=== PATIENT | female | born 1990 | race Caucasian/White ===

== ENCOUNTER 2019-10-06 06:20 | Inpatient (IN) | payer MEDICAID, SELFPAY ==
[2019-10-06 06:03] VITALS: BMI 53.4
--- NOTE | 2019-10-06 06:04 | NURSING ---
0603-difficult to assess presenting part
[2019-10-06] MEDS: Lactated Ringers 500 ML 999 ML IV ×2 (06:25→10:56)
[2019-10-06 06:48] LABS: Absolute Lymphocyte Count 1.67 X10^3/uL (0.83-4.51); Absolute Neutrophil Count 6.6 X10^3/uL (2.0-7.7); Basophil# 0.01 X10^3/uL; Basophil% 0.1 % (0-1); Eosinophil# 0.01 X10^3/uL; Eosinophils% 0.1 % (0-5); Hematocrit 37.3 % (37-47); Hemoglobin 12.3 g/dL (12.0-15.0); Lymphocyte # 1.67 X10^3/ul (4.0); Lymphocyte % 18.5 % (19-41); Mean Corpuscular Hgb 26.9 pg (27.0-32.0); Mean Corpuscular Volume 81.4 fL (81-99); Mean Platelet Vol. 11.2 fl (6.2-12.0); Monocyte# 0.61 X10^3/uL; Monocyte% 6.8 % (0-10); NRBC Flagged by Analyzer 0 % (0-5); Neutrophil # 6.63 X10^3/uL (2.7-7.7); Neutrophil % 73.6 % (47-70); Platelet Count 188 K/mm3 (150-450); RBC Distribution Width CV 13.2 % (11.6-14.6); RBC Distribution Width SD 38.6 fl (35.1-43.9); Red Blood Count 4.58 M/mm3 (4.2-5.4)
[2019-10-06] MEDS: Lactated Ringers 1,000 ML 50 ML IV (07:00)
[2019-10-06] MEDS: fentaNYL-bupivacaine (epidural) 100 ML BAG EPIDURAL ×2 (09:20→12:53)
[2019-10-06] MEDS: Lactated Ringers 1,000 ML 200 ML IV (13:25)
[2019-10-06] MEDS: Oxytocin 30 units/NS 500 ml 30 UNITS/500 ML IV.SOLN IV (13:38)
[2019-10-06] MEDS: Oxytocin 30 units/NS 500 ml 30 UNITS/500 ML IV.SOLN 334 UNITS IV (15:58)
--- NOTE | 2019-10-06 16:05 | PCM.OPRPT ---
Vaginal Delivery Maternal Presentation: Active Labor Amniotic Membrane Rupture Type: Artificial Amniotic Fluid Description: Clear Final ESTHER: 10/22/19 Gestational age: 37 Weeks and 5 Days Date of Procedure: 10/06/19 Pre-Operative Diagnosis: labor Post-Operative Diagnosis: same Surgery/ Procedure Performed: Spontaneous Vaginal Delivery Type of Anesthesia: Epidural Description of Procedure: A vigorous was delivered HARPREET over degree vaginal laceration. The remainder the infant was delivered with maternal pushing and gentle traction only in less than 15 seconds. The Pitocin infusion was initiated for active management of the third stage. The cord was clamped and cut. The was attended to by the waiting nursing staff. The placenta was delivered spontaneously and intact. The cervix and vagina were intact. The first-degree vaginal laceration was repaired with 3-0 Vicryl suture in standard fashion. Sponge and needle counts were correct. A vaginal sweep was completed by me. Presentation: HARPREET Placental Delivery Description: Spontaneous Placenta Disposition: [facility] Cord Vessel Description: 3 Vessels Cord Entanglement: None Estimated Blood Loss: 200 Infant A gender: Male Episiotomy Description: None Laceration: 1st degree Medications given after delivery: IV Pitocin Complications: None
--- NOTE | 2019-10-06 16:08 | PCM.HP.OB ---
History Date of Admission: 05/07/13 Final ESTHER: 10/22/19 Gestational age: 37 Weeks and 5 Days History of this : This is a 29 year-old, 2 para 1 at 37-5/7 weeks gestation with labor. She denies any gross vaginal bleeding or leaking of fluid. Contractions began middle the night got intense after arrival. Allergies Bleach (Sodium Hypochlorite) Adverse Reaction (Verified 10/06/19 06:05) Hives Home Medications: Home Medications 105/Iron/Folic AC/Dha 1 PO DAILY 10/06/19 Smoking Status: Never smoker Number of Fetus(es): 1 History Past Pregnancies: Past Pregnancies Delivery Date Name GA/ Weeks Outcome Route Wt Sex Labor Length Anesthesia Delivery Location Provider FOB Expected Infant Delivery Method: Spontaneous Vaginal Review of Systems Constitutional: Denies: Chills, Fever Eyes: Denies: Blurred vision Cardiovascular: Denies: Chest Pain Respiratory: Denies: Cough Skin: Denies: Rash Neurological: Denies: Blurred vision, Change in Speech Hematologic/ Lymphatic: Denies: Anemia Physical Exam General: Alert, Cooperative, No apparent distress Cardiovascular: Regular rate Lungs: Normal air movement Abdomen: Soft, Non Tender, Non-Distended, Gravid, Appropriate for Gestational Age Extremities:: Other - Edema: 2+ Neurological: Cranial nerves II-XII grossly intact, Deep Tendon Reflexes 2+/4 and Symmetrical 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 Estimated weight is less than 4500 g clinically, pelvis clinically adequate to expect vaginal delivery. Group B strep prophylaxis initiated. May have routine pain management measures in labor.
[2019-10-06 19:34] VITALS: BP 112/54; PULSE 99; RESP 16; TEMP 37.1; O2SAT 97
[2019-10-06] MEDS: Senna/Docusate Sodium 1 Tablet PO (21:22)
[2019-10-06] MEDS: Naproxen 250 MG Tablet 500 MG PO (21:44)
[2019-10-06 23:54] VITALS: BP 114/53; PULSE 96; RESP 18; TEMP 37
[2019-10-07 04:00] VITALS: BP 105/45; PULSE 83; RESP 16; TEMP 36.2
[2019-10-07 05:47] LABS: Absolute Lymphocyte Count 1.71 X10^3/uL (0.83-4.51); Basophil# 0.01 X10^3/uL; Basophil% 0.1 % (0-1); Eosinophil# 0.01 X10^3/uL; Eosinophils% 0.1 % (0-5); Hematocrit 36.2 % (37-47); Hemoglobin 11.7 g/dL (12.0-15.0); Lymphocyte # 1.71 X10^3/ul (4.0); Lymphocyte % 14.9 % (19-41); Mean Corp Hgb Conc 32.3 g/dL (32-36); Mean Corpuscular Hgb 26.7 pg (27.0-32.0); Mean Corpuscular Volume 82.5 fL (81-99); Mean Platelet Vol. 11.3 fl (6.2-12.0); Monocyte# 0.75 X10^3/uL; Monocyte% 6.5 % (0-10); NRBC Flagged by Analyzer 0 % (0-5); Neutrophil # 8.95 X10^3/uL (2.7-7.7); Neutrophil % 77.8 % (47-70); Platelet Count 211 K/mm3 (150-450); RBC Distribution Width CV 13.2 % (11.6-14.6); RBC Distribution Width SD 39.8 fl (35.1-43.9); Red Blood Count 4.39 M/mm3 (4.2-5.4); White Blood Count 11.5 K/mm3 (4.4-11.0)
[2019-10-07] MEDS: Naproxen 250 MG Tablet 500 MG PO ×2 (05:51→15:25)
[2019-10-07 07:47] VITALS: BP 114/71; PULSE 93; RESP 16; TEMP 36.2
--- NOTE | 2019-10-07 07:59 | PN.OBGYN_ITS ---
Subjective: Patient doing well. Denies VAUGHN, vision changes, lightheadedness, dizziness, chest pain, shortness of breath, palpitations, increased pain, leg pain. Lochia normal. . Ambulating and voiding without difficulty. - Physical Exam Vitals/I&O's: Vital Signs Temp Pulse Resp BP Pulse Ox 97.2 F L 93 16 114/71 97 10/07/19 07:47 10/07/19 07:47 10/07/19 07:47 10/07/19 07:47 10/06/19 19:34 Oxygen Delivery Method Room Air Weight: 330 lb 11.094 oz Body Mass Index (BMI) 53.4 Intake and Output for Last 24 Hours 10/05/19 10/06/19 10/07/19 23:59 23:59 23:59 Intake Total 4331.19 / 4331.19 Output Total 950 / 1300 350 / 350 Balance 3381.19 / 3031.19 -350 / -350 General: Alert, No apparent distress HEENT: Atraumatic Abdomen: Soft, Non Tender, - - FF@U Extremities: No edema Skin: No rashes Neurological: Neuro grossly intact Psych/Mental Status: Normal Affect, Appropriate Laboratory Results 10/06/19 06:25: Blood Type A NEGATIVE, Antibody Screen NEGATIVE 10/06/19 17:24: Screen NEGATIVE, Baby's Blood Type O POSITIVE, Baby's WILLIAM NEGATIVE 10/07/19 05:30: WBC 11.5 H, RBC 4.39, Hgb 11.7 L, Hct 36.2 L, MCV 82.5, MCH 26.7 L, MCHC 32.3, RDW Std Deviation 39.8, RDW Coeff of Jay 13.2, Plt Count 211, MPV 11.3, Immature Gran % (Auto) 0.600, Neut % (Auto) 77.8 H, Lymph % (Auto) 14.9 L, [place] % (Auto) 6.5, Eos % (Auto) 0.1, Baso % (Auto) 0.1, Absolute Neuts (auto) 9.0 H, Absolute Lymphs (auto) 1.71, Nucleated RBC % 0 Current Medications Acetaminophen (Tylenol) 1,000 mg PO Q8H PRN PRN PRN Reason: Pain Score 1-3/10 Bisacodyl (Dulcolax) 10 mg RECTAL UD PRN PRN Reason: If no BM Dibucaine (Dibucaine) 1 applic TOPICAL TID PRN PRN; Protocol PRN Reason: Discomfort Hydrocortisone (Hytone) 1 applic TOPICAL TID PRN PRN; Protocol PRN Reason: Discomfort Methylergonovine Maleate (Methergine) 0.2 mg IM X1 PRN PRN Reason: Excess bleeding/uterine atony Naproxen (Naprosyn) 500 mg PO Q8H PRN PRN PRN Reason: Pain Score 1-3/10 Last Admin: 10/07/19 05:51 Dose: 500 mg Documented by: Ondansetron HCl (Zofran) 4 mg IV Q4H PRN PRN PRN Reason: Nausea Prochlorperazine Edisylate (Compazine Iv) 10 mg IV Q6H PRN PRN PRN Reason: NAUSEA/VOMITING Senna/Docusate Sodium (Senokot-S, Torie-Colace) 1 - 2 tablet PO DAILY PRN PRN PRN Reason: Constipation Last Admin: 10/06/19 21:22 Dose: 1 tablet Documented by: Simethicone (Mylicon) 80 mg PO PCHS PRN PRN Reason: Indigestion/Stomach pain Sodium Chloride () 5 - 15 ml IV UD PRN PRN Reason: SALINE FLUSH Medical Necessity - Tobacco Use Smoking Status: Never smoker Assessment/Plan day 1 from a spontaneous vaginal delivery -Patient is doing well -Breast-feeding -Dispo: Patient desires to stay another night. Anticipate discharge tomorrow
[2019-10-07 10:06] VITALS: BP 120/67; PULSE 101; RESP 16; TEMP 36
--- NOTE | 2019-10-07 10:51 | NURSING ---
reviewed student's chart for completeness
[2019-10-07 15:12] VITALS: BP 136/62; PULSE 88; RESP 16; TEMP 36.1
[2019-10-07] MEDS: Acetaminophen 500 MG Tablet 1000 MG PO (19:52)
[2019-10-07 19:53] VITALS: BP 121/74; PULSE 87; RESP 18; TEMP 36.3
[2019-10-08] MEDS: Naproxen 250 MG Tablet 500 MG PO ×2 (01:06→09:34)
[2019-10-08] MEDS: Senna/Docusate Sodium 1 Tablet PO (01:06)
[2019-10-08 01:10] VITALS: BP 111/68; PULSE 85; RESP 17; TEMP 36.4; O2SAT 96
[2019-10-08 09:00] VITALS: BP 107/60; PULSE 100; RESP 16; TEMP 36.4
--- NOTE | 2019-10-08 09:02 | PCM.PN.OB ---
Subjective: Doing well per patient and nursing staff. Ambulating and taking PO without difficulty. Voiding and passing flatus. Denies any headache, visual changes, chest pain, SOB, or leg pain, Lochia normal. Planning D/C home today. - Physical Exam Vitals/I&O's: Vital Signs Temp Pulse Resp BP Pulse Ox 97.5 F L 85 17 111/68 96 10/08/19 01:10 10/08/19 01:10 10/08/19 01:10 10/08/19 01:10 10/08/19 01:10 Oxygen Delivery Method Room Air Weight: 330 lb 11.094 oz Body Mass Index (BMI) 53.4 Intake and Output for Last 24 Hours 10/06/19 10/07/19 10/08/19 23:59 23:59 23:59 Intake Total 4331.19 / 4331.19 Output Total 950 / 1300 350 / 350 Balance 3381.19 / 3031.19 -350 / -350 General: Alert, Oriented x3, Cooperative HEENT: Atraumatic, Normocephalic Neck: Trachea Midline Lungs: Clear to auscultation, Normal air movement, No rhonchi, No wheeze Cardiovascular: Regular rate, Regular Rhythm, No murmurs Abdomen: Bowel Sounds Present, - - Fundus firm 2 below U Extremities: No edema Psych/Mental Status: Normal Affect, Appropriate Current Medications Acetaminophen (Tylenol) 1,000 mg PO Q8H PRN PRN PRN Reason: Pain Score 1-3/10 Last Admin: 10/07/19 19:52 Dose: 1,000 mg Documented by: Bisacodyl (Dulcolax) 10 mg RECTAL UD PRN PRN Reason: If no BM Dibucaine (Dibucaine) 1 applic TOPICAL TID PRN PRN; Protocol PRN Reason: Discomfort Hydrocortisone (Hytone) 1 applic TOPICAL TID PRN PRN; Protocol PRN Reason: Discomfort Methylergonovine Maleate (Methergine) 0.2 mg IM X1 PRN PRN Reason: Excess bleeding/uterine atony Naproxen (Naprosyn) 500 mg PO Q8H PRN PRN PRN Reason: Pain Score 1-3/10 Last Admin: 10/08/19 01:06 Dose: 500 mg Documented by: Ondansetron HCl (Zofran) 4 mg IV Q4H PRN PRN PRN Reason: Nausea Prochlorperazine Edisylate (Compazine Iv) 10 mg IV Q6H PRN PRN PRN Reason: NAUSEA/VOMITING Senna/Docusate Sodium (Senokot-S, Torie-Colace) 1 - 2 tablet PO DAILY PRN PRN PRN Reason: Constipation Last Admin: 10/08/19 01:06 Dose: 1 tablet Documented by: Simethicone (Mylicon) 80 mg PO PCHS PRN PRN Reason: Indigestion/Stomach pain Sodium Chloride () 5 - 15 ml IV UD PRN PRN Reason: SALINE FLUSH Medical Necessity - Tobacco Use Smoking Status: Never smoker Assessment/Plan A:PPD #2 P: 1) Routine care 2) Planning D/C home today 3) Hgb stable
--- NOTE | 2019-10-08 09:05 | DCINST_ITS ---
Discharge Diet: No Restrictions Discharge Activity: Return to Normal Activity, May not drive while taking narcotic pain medications., May Shower, May Take a Tub Bath May resume sexual activity in: 4-6 weeks Additional Activity Instructions:: Nothing in the vagina for 4-6 weeks. You may return to work/school in 6 weeks. Call your doctor if your incision/area has: Continuous Slow Oozing, Sudden Increased Bleeding, Increased Pain/ Swelling, Increased Redness, Foul Smelling Discharge Call your doctor if you observe: Fever of 101 or Higher, Inability to urinate, Inability to have a bowel movement, Using more than one pad per hour, Shortness of breath, Chest pain, Increased palpitations (irregular heartbeat), Calf discomfort, Uncontrolled pain Additional Instructions: If you experience any of the following, contact your healthcare provider. * Bleeding that soaks a pad every hour for 2 hours * Fever 100.4 or higher * Unrelieved incision or abdominal pain * Swelling, redness, discharge or bleeding from your incision or episiotomy site * Your incision begins to separate * Problems urinating (including inability to urinate or burning while urinating). * Visual changes * Severe headache * Flu-like symptoms * Pain or redness in one of both of your breasts * Pain, warmth, tenderness or swelling in your legs, especially the calf area * Frequent nausea and vomiting * Symptoms of depression or anxiety If you experience any of the following, call 911 or go to the nearest Emergency Room. * Chest pain * Problems breathing * Seizure activity * Partial or complete paralysis of a body part, slurred speech, weakness or drooping of the face, or a sudden inability to walk or hold your balance Allergies/Adverse Reactions: Allergies Bleach (Sodium Hypochlorite) Adverse Reaction (Verified 10/06/19 06:05) Hives Medications to take at Discharge 105/Iron/Folic AC/Dha 1 PO DAILY 10/06/19 Naproxen [Naprosyn] 500 mg PO Q8H PRN PRN #30 tab 10/08/19 Senna/Docusate Sodium [Senokot-S] 1 - 2 tab PO DAILY PRN PRN #30 tab 10/08/19 The following prescriptions were given: Naproxen [Naprosyn] 500 mg PO Q8H PRN PRN #30 tab PRN Reason: Pain Score 1-01/19 Transmission Status: Pending to [facility] Senna/Docusate Sodium [Senokot-S] 1 - 2 tab PO DAILY PRN PRN #30 tab PRN Reason: Constipation Transmission Status: Pending to [facility] Please Follow Up With: Jazlyn Rosas MD When: Call to make an appointment with your doctor in 6 weeks. If you had elevated Blood Pressure or 4th degree laceration you will need to be seen in 2 weeks. Primary Care Physician: Care Physician,No Primary [Primary Care Provider] - Test Results: Test results from this visit will be discussed in further detail at your follow- up appointment, if applicable.
== END 2019-10-08 11:20 | disposition home or self-care (01) | DRG 560 ==
LOC: WPOUT 06:32
PROVIDERS: Advanced Practice Midwife; Admitting Provider Obstetrics & Gynecology; Referring Provider Obstetrics & Gynecology; Visit Provider Obstetrics & Gynecology
DX: O70.0 First degree perineal laceration during delivery (principal); Z37.0 Single live birth; Z3A.37 37 weeks gestation of pregnancy
CPT/HCPCS: 36415; 59025; 59050; 85025; 85461; 86850; 86900; 86901; 90384; 99218; J7120; G0378; J2790; J3490

== ENCOUNTER 2019-11-20 07:38 | Day surgery (SDC) | payer MEDICAID, SELFPAY ==
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
[2019-11-20] VITALS (8 sets, daily range): BP systolic 110–135; BP diastolic 36–79; PULSE 67–89; RESP 16; TEMP 36.1–36.4; O2SAT 90–99; BMI 53.1
[2019-11-20 08:09] LABS: Internal QC Validated? YES +Cl - CLEAR BKGD; Pregnancy, Urine Negative Negative
[2019-11-20] MEDS: Lactated Ringers 1,000 ML 100 ML IV ×2 (08:22→10:51)
[2019-11-20 08:34] LABS: Hematocrit 38.6 % (37-47); Hemoglobin 12.4 g/dL (12.0-15.0); Mean Corp Hgb Conc 32.1 g/dL (32-36); Mean Corpuscular Hgb 25.7 pg (27.0-32.0); Mean Corpuscular Volume 79.9 fL (81-99); Mean Platelet Vol. 10.2 fl (6.2-12.0); Platelet Count 264 K/mm3 (150-450); RBC Distribution Width CV 12.7 % (11.6-14.6); RBC Distribution Width SD 36.2 fl (35.1-43.9); Red Blood Count 4.83 M/mm3 (4.2-5.4); White Blood Count 7.8 K/mm3 (4.4-11.0)
--- NOTE | 2019-11-20 09:40 | FALS_PTH ---
PATIENT: DENISSE MCKENZIE LOC: [facility] [place] U#:[id number] AGE/SX: 29/F ROOM: RE11/20/[address]: Dr. Juliet Archuleta, MDDOB: 1990 BED: DIS: 11/20/2019 SPEC #: [id number] RECD: 11/20/19 11:32 STATUS: RO REBryant #: [id number] LARRY: 11/20/19 09:[address]: Juliet Archuleta DEPT: SURGICAL PATHOLOGY RECD BY: Preet Orozco ENTERED: 11/20/19 13:45 SP TYPE: FALL TUBES OTHR DR: Dr. Wilson Cruz MD Tissues: Fallopian tube Procedures: Surgery Specimen Level II Surgery Specimen Level IV HEADER OPERATION: Laparoscopic salpingectomy PRE-OP DIAGNOSIS: Sterilization TISSUE SUBMITTED: Bilateral fallopian tubes MICROSCOPIC DIAGNOSIS Right and left fallopian tubes, bilateral salpingectomies: Two complete segments of fallopian tubes. One fallopian tube with benign paratubal cyst. AM:maricruz 11/21/19 MICROSCOPIC DESCRIPTION Slides are reviewed. GROSS DESCRIPTION Received is one container labeled with the patient's name and designated bilateral fallopian tubes. The specimen consists of bilateral fallopian tubes including fimbrial ends measuring 5 cm in length and 0.7 cm in diameter and 6 cm in length and 0.6 cm in diameter. One of the fallopian tubes shows a cyst measuring 0.3 cm in great dimension. The fallopian tubes are not identified as right or left. Sections reveal unremarkable cut surfaces. Senior Principal Process Engineer sections are submitted in two cassettes as follows: 1??one fallopian tube, 2 - second fallopian tube and paratubal cyst. / SJ:maricruz 11/20/19 TC:4 CPT: 73307, 16637
--- NOTE | 2019-11-20 10:28 | DCINST_ITS ---
Discharge Diet: No Restrictions, - - Increase fluid intake for 48 hours. Discharge Activity: Return to Normal Activity, May Drive - when you are no longer taking narcotic pain medications., May Shower, May Take a Tub Bath - in 7 days., - - Ambulate often the next week after surgery. Additional Activity Instructions:: Nothing in the vagina for the next 5 days. Call your doctor if your incision/area has: Continuous Slow Oozing, Sudden Increased Bleeding, Increased Pain/ Swelling, Increased Redness, Foul Smelling Discharge, Swelling at the incision site Call your doctor if you observe: Fever of 101 or Higher Allergies/Adverse Reactions: Allergies Bleach (Sodium Hypochlorite) Adverse Reaction (Verified 11/20/19 08:06) Hives Medications to take at Discharge 105/Iron/Folic AC/Dha 1 tab PO DAILY 10/06/19 Ibuprofen [Motrin] 600 mg PO Q6H PRN PRN #30 tab 11/20/19 Oxycodone HCl/Acetaminophen [Percocet 5/325] 1 tablet PO Q4H PRN PRN 7 Days #10 tablet 11/20/19 The following prescriptions were given: Ibuprofen [Motrin] 600 mg PO Q6H PRN PRN #30 tab PRN Reason: Pain Or Fever Transmission Status: Pending to [facility] Oxycodone HCl/Acetaminophen [Percocet 5/325] 1 tablet PO Q4H PRN PRN 7 Days #10 tablet PRN Reason: Pain Or Fever Transmission Status: Sent to [facility] Primary Care Physician: Wilson Cruz MD [Primary Care Provider] - Test Results: Test results from this visit will be discussed in further detail at your follow- up appointment, if applicable.
--- NOTE | 2019-11-20 10:29 | PCM.OPRPT ---
Report of Operation Date of Procedure: 11/20/19 Pre-Operative Diagnosis: desires sterilization Post-Operative Diagnosis: same, endometriosis Surgery/Procedure Performed:: laparoscopic Bilateral salpingectomy Description of Surgical Findings:: Endoemtriosis appearing lesions on bilateral ovaries. Otherwise normal appearing pelvic anatomy service advocate contact: Zee Ashraf Type of Anesthesia:: General Special Medications: marcaine Specimen's removed: bilateral fallopian tubes Drains: none Estimated Blood Loss (mL): <5 Fluids Replaced: 600 Description of Procedure: After informed consent was obtained patient was taken to the operating room she was placed in supine position she was given anesthesia. She was then placed in the [facility] [place] stirrups and she was prepped and draped in normal sterile fashion. Bladder was drained prior to the start of procedure. At this time attention was turned to the vaginal portion where weighted speculum placed at posterior fornix vagina single-tooth tenaculum was used to gently grasp the internal the cervix. uterus was gently sounded to approximately cm. Uterine manipulator was placed without difficulty. Legs then placed in parallel with the abdomen the tenaculum and the weighted speculum were removed. 2 towel clamps were placed at level of umbilicus. Marcaine was injected infraumbilical and a small incision was made. The 5 mm trocar was placed under direct visualization. CO2 gas was used to insufflate the intra-abdominal cavity. Upon inspection no gross abnormalities appreciated- the uterus tubes and ovaries appeared to be normal. At this time then the LLQ and RLQ ports were placed First Marcaine was injected and small incision was made a knife and the 5 mm trocars were placed. At this time then tubes were traced back to the fimbriated ends. Ligasure was used to coagulate and ligate along mesosalpynx bilaterally until tubes removed completely. Good hemostasis was appreciated. At this time procedure was deemed complete successful. The gas was desufflated on from the intra-abdominal cavity. The trochars were removed. Skin was closed using 4-0 Monocryl in a subcutaneous fashion. Dermabond glue was placed. Instrument lap and needle counts were correct ?2. The uterine manipulator was removed. Vaginal sweep was performed it was negative. There were no complications anticipated normal postoperative course for this patient. Grafts/Implants Used: none - Complications none - Admit VTE Documentation VTE Present on Admission: Yes VTE Mechan Device Prophylaxis: SCD's VTE Pharm Prophylaxis ordered?: No
[2019-11-20] MEDS: Bupivacaine Mpf 0.5% 30 ML VIAL (10:31)
== END 2019-11-20 12:10 | disposition home or self-care (01) ==
LOC: SDC 07:40 → AC 07:53
PROVIDERS: Family Provider Family Medicine; PCP Family Medicine; Referring Provider Obstetrics & Gynecology; Visit Provider Obstetrics & Gynecology
PROC: (CPT 58661; principal; 2019-11-20 09:25)
DX: Z30.2 Encounter for sterilization (principal); N80.1 Endometriosis of ovary; J45.909 Unspecified asthma, uncomplicated
CPT/HCPCS: 58661; 81025; 85027; 88302; 88305; J7120; J2405

== ENCOUNTER → 2023-12-03 | Outpatient (CLI) | payer MEDICAID, SELFPAY ==
--- NOTE | 2023-12-03 15:13 | US_ITS ---
STUDY: ULTRASOUND TRANSVAGINAL CLINICAL: Female, 33 years old. abnormal uterine bleeding TECHNIQUE: Transvaginal COMPARISON: None. FINDINGS: Limited by bowel gas. Normal uterine size measuring 8.3 x 4.9 x 5.0 cm in maximal craniocaudal dimension. There are no myometrial masses. Normal endometrial thickness measuring 5 mm. There are no endometrial masses, and there is no fluid in the endometrial cavity. Endometrial echoes are hyperechoic and well-defined. Nabothian cyst of the uterine cervix. Normal right ovary, measuring 4.4 x 4.2 x 3.6 cm. There is a 3.5 cm simple cyst. Normal blood flow. Left ovary is not visualized because of bowel gas. There is no free fluid in the pelvis. Polycystic ovary disease: No. US/Transvaginal Non- IMPRESSION: Left ovary is not seen. Right ovary has a 3.5 cm cyst. No other definite acute or significant abnormality seen. Electronically Signed: Edwar Ramírez MD at 16:58 EST ,
--- OUTSIDE RECORDS SUMMARY | 2023-12-03 15:54 | XMS RPT_ITS | CCD ---
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 examination of abnormal mammogram Procedures TAMIKA DIAGNOSTIC BILAT DIAGNOSTIC MAMMOGRAPHY COMPUTER-AIDED DETCJ BI Nadine Graham MD [address] [place] [address] [facility] [address] [place] [address] Referral ID Status Reason Start Date Expiration Date Visits Requested Visits Authorized [id number] Pending Review Auto-Generat ed Referral 03/14/2022 04/13/2023 1 1 [facility] for referral (narrative)* Diagnostic Procedure Only (Routine) - Authorized Specialty Diagnoses / Procedures Referred By Contac t Referred To Contact [facility] Diagnoses Pelvic pain in female History of ovarian cyst Procedures PELVIC US WHI US PELVIC NONOBSTETRIC REAL-TIME IMAGE COMPLETE Nadine Graham MD [address] [place] [address] [facility] [address] [place] [address] Referral ID Status Reason Start Date Expiration Date Visits Requested Visits Authorized [id number] Authorized Auto-Generat ed Referral 05/23/2022 05/23/2023 1 1 [facility] for referral (narrative)* Diagnostic Procedure Only (Routine) - Authorized Specialty Diagnoses / Procedures Referred By Contac t Referred To Contact [facility] Diagnoses Follow-up examination of abnormal mammogram Procedures US BREAST LTD RIGHT US BREAST UNI REAL TIME WITH IMAGE LIMITED Anabela Carroll APRN.CNP [address] [place] [address] [facility] [address] [place] [address] Referral ID Status Reason Start Date Expiration Date Visits Requested Visits Authorized [id number] Authorized Auto-Generat ed Referral 03/20/2023 04/18/2024 1 1 * Diagnostic Procedure Only (Routine) - Authorized Specialty Diagnoses / Procedures Referred By Contac t Referred To Contact [facility] Diagnoses Follow-up examination of abnormal mammogram Procedures US BREAST LTD LEFT US BREAST UNI REAL TIME WITH IMAGE LIMITED Anabela Carroll APRN.GLOBAL COMPENSATION ANALYST [address] [place] [address] [facility] [address] [place] [address] Referral ID Status Reason Start Date Expiration Date Visits Requested Visits Authorized [id number] Authorized Auto-Generat ed Referral 03/20/2023 04/18/2024 1 1 * Diagnostic Procedure Only (Routine) - Authorized Specialty Diagnoses / Procedures Referred By Gary arenas Referred To Contact [facility] Diagnoses Follow-up examination of abnormal mammogram Procedures TAMIKA DIAGNOSTIC BILATERAL DIAGNOSTIC MAMMOGRAPHY COMPUTER-AIDED DETCJ BI Anabela Carroll APRN.GLOBAL COMPENSATION ANALYST [address] [place] [address] [facility] [address] [place] [address] Referral ID Status Reason Start Date Expiration Date Visits Requested Visits Authorized [id number] Authorized Auto-Generat ed Referral 03/20/2023 04/18/2024 1 1 [facility] for referral (narrative)* Diagnostic Procedure Only (Routine) - Closed Specialty Diagnoses / Procedures Referred By Gary arenas Referred To Contact [facility] Diagnoses Follow-up examination of abnormal mammogram Procedures US BREAST LTD RIGHT US BREAST UNI REAL TIME WITH IMAGE LIMITED Anabela Carroll APRN.GLOBAL COMPENSATION ANALYST [address] [place] [address] [facility] [address] [place] [address] Referral ID Status Reason Start Date Expiration Date V isits Requested Visits Authorized [id number] Closed Auto-Generate d Referral 03/20/2023 04/18/2024 1 1 * Diagnostic Procedure Only (Routine) - Closed Specialty Diagnoses / Procedures Referred By Gary t Referred To Contact [facility] Diagnoses Follow-up examination of abnormal mammogram Procedures US BREAST LTD LEFT US BREAST UNI REAL TIME WITH IMAGE LIMITED Anabela Carroll APRN.CNP [address] [place] [address] [facility] [address] [place] [address] Referral ID Status Reason Start Date Expiration Date V isits Requested Visits Authorized [id number] Closed Auto-Generate d Referral 03/20/2023 04/18/2024 1 1 [facility] for visit Narrative* Diagnostic Procedure Only (Routine) - Closed Specialty Diagnoses / Procedures Referred By Gary t Referred To Contact [facility] Diagnoses Mass of lower inner quadrant of left breast Procedures US BREAST LTD LT US BREAST UNI REAL TIME WITH IMAGE LIMITED Nadine Graham MD [address] [address] [facility] [address] [place] [address] Referral ID Status Reason Start Date Expiration Date V isits Requested Visits Authorized [id number] Closed Auto-Generate d Referral 02/15/2022 03/17/2023 1 1 [facility] for visit Narrative* Diagnostic Procedure Only (Routine) - Closed Specialty Diagnoses / Procedures [facility] To [facility] Diagnoses Follow-up examination of abnormal mammogram Procedures TAMIKA DIAGNOSTIC BILATERAL DIAGNOSTIC MAMMOGRAPHY COMPUTER-AIDED DETCJ BI Anabela Carroll APRN.GLOBAL COMPENSATION ANALYST [address] [place] [address] [facility] [address] [place] [address] Referral ID Status Reason Start Date Expiration Date V isits Requested Visits Authorized [id number] Closed Auto-Generate d Referral 03/20/2023 04/18/2024 1 1 [facility] Summary Purpose Family History No Family History Records FoundNo Family History Records FoundNo Family History Records FoundNo Family History Records FoundNo Family History Records Found Advance Directives Documents on File Type Date Recorded Patient Journal Box Inspector Expl anation Advance Directive(s) 01/09/2022 7:49 AM Advance Directive(s) 02/20/2021 9:46 PM Advance Directive(s) 11/18/2020 11:42 PM Advance Directive(s) 11/02/2020 8:40 PM Advance Directive(s) 07/13/2018 11:30 PM Documents on File Type Date Recorded Patient Journal Box Inspector Expl anation Advance Directive(s) 01/09/2022 7:49 AM Advance Directive(s) 02/20/2021 9:46 PM Advance Directive(s) 11/18/2020 11:42 PM Advance Directive(s) 11/02/2020 8:40 PM Advance Directive(s) 07/13/2018 11:30 PM Additional Source Comments INFORMATION SOURCE (unrecogn ized section and content) DATE CREATED AUTHOR AUTHOR'S ORGANIZ ATION 01/09/2022 [facility] DATE CREATED AUTHOR AUTHOR'S ORGANIZ ATION 01/19/2022 [facility] DATE CREATED AUTHOR AUTHOR'S ORGANIZ ATION 06/13/2022 [facility] DATE CREATED AUTHOR AUTHOR'S ORGANIZ ATION 2023 [facility] Source Comments (unrecognize d section and content) In the event this informatio n is protected by the Federal Confidentiality of Alcohol and Drug Abuse Patient Records regulations: The Federal rules restrict any use of the information to criminally investigate or prosecute any alcohol or drug abuse patient.[facility] the event this information is protected by the Federal Confidentiality of Alcohol and Drug Abuse Patient Records regulations: The Federal rules restrict any use of the information to criminally investigate or prosecute any alcohol or drug abuse patient.[facility] the event this information is protected by the Federal Confidentiality of Alcohol and Drug Abuse Patient Records regulations: The Federal rules restrict any use of the information to criminally investigate or prosecute any alcohol or drug abuse patient.[facility] the event this information is protected by the Federal Confidentiality of Alcohol and Drug Abuse Patient Records regulations: The Federal rules restrict any use of the information to criminally investigate or prosecute any alcohol or drug abuse patient.[facility] the event this information is protected by the Federal Confidentiality of Alcohol and Drug Abuse Patient Records regulations: The Federal rules restrict any use of the information to criminally investigate or prosecute any alcohol or drug abuse patient.[facility] the event this information is protected by the Federal Confidentiality of Alcohol and Drug Abuse Patient Records regulations: The Federal rules restrict any use of the information to criminally investigate or prosecute any alcohol or drug abuse patient.[facility] the event this information is protected by the Federal Confidentiality of Alcohol and Drug Abuse Patient Records regulations: The Federal rules restrict any use of the information to criminally investigate or prosecute any alcohol or drug abuse patient.[facility] the event this information is protected by the Federal Confidentiality of Alcohol and Drug Abuse Patient Records regulations: The Federal rules restrict any use of the information to criminally investigate or prosecute any alcohol or drug abuse patient.[facility] the event this information is protected by the Federal Confidentiality of Alcohol and Drug Abuse Patient Records regulations: The Federal rules restrict any use of the information to criminally investigate or prosecute any alcohol or drug abuse patient.[facility] the event this information is protected by the Federal Confidentiality of Alcohol and Drug Abuse Patient Records regulations: The Federal rules restrict any use of the information to criminally investigate or prosecute any alcohol or drug abuse patient.[facility] the event this information is protected by the Federal Confidentiality of Alcohol and Drug Abuse Patient Records regulations: The Federal rules restrict any use of the information to criminally investigate or prosecute any alcohol or drug abuse patient.[facility] the event this information is protected by the Federal Confidentiality of Alcohol and Drug Abuse Patient Records regulations: The Federal rules restrict any use of the information to criminally investigate or prosecute any alcohol or drug abuse patient.[facility] the event this information is protected by the Federal Confidentiality of Alcohol and Drug Abuse Patient Records regulations: The Federal rules restrict any use of the information to criminally investigate or prosecute any alcohol or drug abuse patient.[facility] the event this information is protected by the Federal Confidentiality of Alcohol and Drug Abuse Patient Records regulations: The Federal rules restrict any use of the information to criminally investigate or prosecute any alcohol or drug abuse patient.[facility] the event this information is protected by the Federal Confidentiality of Alcohol and Drug Abuse Patient Records regulations: The Federal rules restrict any use of the information to criminally investigate or prosecute any alcohol or drug abuse patient.[facility] the event this information is protected by the Federal Confidentiality of Alcohol and Drug Abuse Patient Records regulations: The Federal rules restrict any use of the information to criminally investigate or prosecute any alcohol or drug abuse patient.[facility] the event this information is protected by the Federal Confidentiality of Alcohol and Drug Abuse Patient Records regulations: The Federal rules restrict any use of the information to criminally investigate or prosecute any alcohol or drug abuse patient.[facility] Reason for Visit (unrecogniz ed section and content) Reason Comments Ovarian Cyst Reason Onset Date Comments Refill Request 03/11/2022 Reason Comments Results Reason Comments Pelvic Pain Reason Comments Patient Update Discontinue Xolair r equest Reason Onset Date Comments Refill Request 08/29/2022 Reason Onset Date Comments Refill Request 02/23/2023 Reason Comments Orders Reason Comments Yearly Exam 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 Diagnoses / Procedures Referred By Contac t Referred To Contact [facility] Diagnoses History of ovarian cyst Procedures PELVIC US WHI US PELVIC NONOBSTETRIC REAL-TIME IMAGE COMPLETE Nadine Graham MD [address] [address] [facility] [address] [place] [address] Referral ID Status Reason Start Date Expiration Date V isits Requested Visits Authorized [id number] Closed Auto-Generate d Referral 10/20/2022 10/20/2023 1 1 Reason Onset Date Comments Refill Request 07/09/2023 Reason Comments Radiology US Specialty Diagnoses / Procedures Referred By Contac t Referred To Contact [facility] Diagnoses Follow-up examination of abnormal mammogram Procedures US BREAST LTD RIGHT US BREAST UNI REAL TIME WITH IMAGE LIMITED Anabela Carroll APRN.CNP [address] [place] [address] [facility] [address] [place] [address] Referral ID Status Reason Start Date Expiration Date V isits Requested Visits Authorized [id number] Closed Auto-Generate d Referral 03/20/2023 04/18/2024 1 1 Care Teams (unrecognized sec tion and content) 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 Relationship Specialty Start Date End Date Wilson Grace MD [address] [address] PCP - General Family Practice 01/09/22 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 Relationship Specialty Start Date End Date Wilson Grace MD [address] [address] PCP - General Family Practice 01/09/22 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 Relationship Specialty Start Date End Date Wilson Grace MD [address] [address] PCP - General Family Practice 01/09/22 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 Relationship Specialty Start Date End Date Wilson Grace MD [address] [address] PCP - General Family Practice 01/09/22 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 Relationship Specialty Start Date End Date Wilson Grace MD [address] [address] PCP - General Family Practice 01/09/22 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 Relationship Specialty Start Date End Date Wilson Grace MD [facility] [address] PCP - General Family Practice 01/09/22 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 Relationship Specialty Start Date End Date Wilson Grace MD [address] [address] PCP - General Family Medicine 01/09/22 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 Relationship Specialty Start Date End Date Wilson Grace MD [address] [address] PCP - General Family Medicine 01/09/22 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 Relationship Specialty Start Date End Date Wilson Grace MD [address] [address] PCP - General Family Medicine 01/09/22 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 Relationship Specialty Start Date End Date Wilson Grace MD [address] [address] PCP - General Family Medicine 01/09/22 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 Relationship Specialty Start Date End Date Wilson Grace MD [address] [address] PCP - General Family Medicine 01/09/22 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 Relationship Specialty Start Date End Date Wilson Grace MD [address] [address] PCP - General Family Medicine 01/09/22 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 Relationship Specialty [place] [address] [place] [address] PCP - General Family Medicine 01/09/22 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 Relationship Specialty [place] [address] [place] [address] PCP - General Family Medicine 01/09/22 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 Relationship Specialty Start Date End Date Wilson Grace MD [address] [address] PCP - General Family Medicine 01/09/22 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 Relationship Specialty Start Date End Date Wilson Grace MD [address] [address] PCP - General Family Medicine 01/09/22 FOR RECORDS PERTAINING TO PATIENTS WHO ARE OR HAVE BEEN ENROLLED IN A CHEMICAL DEPENDENCY/SUBSTANCEABUSE PROGRAM, SOME INFORMATION MAY BE OMITTED. This clinical summary was aggregated from multiple sources. Caution should be exercised in using it in the provision of clinical care. This summary normalizes information from multiple sources, and as a consequence, information in this document may materially change the coding, format and clinical context of patient data. In addition, data may be omitted in some cases. CLINICAL DECISIONS SHOULD BE BASED ON THE PRIMARY CLINICAL RECORDS. [facility] [employer] [facility]. provides no warranty or guarantee of the accuracy or completeness of information in this document.
== END | disposition home or self-care (01) ==
PROVIDERS: PCP Family Medicine; Referring Provider Advanced Practice Midwife; Visit Provider Advanced Practice Midwife
DX: N93.9 Abnormal uterine and vaginal bleeding, unspecified (principal)
CPT/HCPCS: 76830

== ENCOUNTER → 2023-12-10 | Outpatient (CLI) | payer MEDICAID, SELFPAY ==
[2023-12-10 12:46] LABS: Absolute Lymphocyte Count 2.58 X10^3/uL (0.83-4.51); Absolute Neutrophil Count 4.2 X10^3/uL (2.0-7.7); Basophil# 0.02 X10^3/uL; Basophil% 0.3 % (0-1); Hematocrit 41.9 % (37-47); Hemoglobin 13.2 g/dL (12.0-15.0); Lymphocyte # 2.58 X10^3/ul (0.83-4.51); Lymphocyte % 34.3 % (19-41); Mean Corp Hgb Conc 31.5 g/dL (32-36); Mean Corpuscular Hgb 26.3 pg (27.0-32.0); Mean Corpuscular Volume 83.6 fL (81-99); Mean Platelet Vol. 10.7 fl (6.2-12.0); Monocyte# 0.67 X10^3/uL; Monocyte% 8.9 % (0-10); NRBC Flagged by Analyzer 0 % (0-5); Neutrophil % 55.7 % (47-70); Platelet Count 278 K/mm3 (150-450); RBC Distribution Width CV 12.4 % (11.6-14.6); RBC Distribution Width SD 37.7 fl (35.1-43.9); Red Blood Count 5.01 M/mm3 (4.2-5.4); White Blood Count 7.5 K/mm3 (4.4-11.0)
[2023-12-10 13:28] LABS: Thyroid Stim Hormone (TSH) 2.86 uIU/mL (0.358-3.74)
== END | disposition home or self-care (01) ==
LOC: LAB 11:58
PROVIDERS: PCP Family Medicine; Referring Provider Advanced Practice Midwife; Visit Provider Advanced Practice Midwife
DX: Z13.29 Encounter for screening for other suspected endocrine disorder (principal); N93.9 Abnormal uterine and vaginal bleeding, unspecified
CPT/HCPCS: 36415; 84443; 85025

== ENCOUNTER → 2024-01-15 | Outpatient (CLI) | payer MEDICAID, SELFPAY ==
--- NOTE | 2024-01-15 09:15 | EMB_PTH ---
PATHOLOGY RESULTS PATIENT: DENISSE MCKENZIE LOC: [facility] U#:[id number] AGE/SX: 33/F ROOM: RE01/15/[address]: Dr. Brittany Argueta DO : 1990 BED: DIS: 01/15/2024 SPEC #: [id number] RECD: 01/15/24 11:32 STATUS: RO JACOB #: [id number] LARRY: 01/15/24 09:[address]: Brittany Argueta DEPT: SURGICAL PATHOLOGY RECD BY: Radha Encarnacion ENTERED: 01/15/24 11:32 SP TYPE: ENDOM BX/C OTHR DR: Dr. Wilson Cruz MD Tissues: Endometrium, NOS Procedures: Surgery Specimen Level IV HEADER OPERATION: Endometrial biopsy PRE-OP DIAGNOSIS: Abnormal uterine bleeding TISSUE SUBMITTED: Endometrial lining MICROSCOPIC DIAGNOSIS Endometrial biopsy: Weakly proliferative endometrium. Fragments of benign endocervical mucosa. SJ:maricruz 01/16/2024 MICROSCOPIC DESCRIPTION Slides are reviewed. GROSS DESCRIPTION Received is one container labeled with the patient's name and not further designated. The specimen consists of multiple irregular fragments of amado mucoid tissue that in aggregate measure 0.5 x 0.2 x 0.1 cm. The specimen is totally submitted in one cassette. / SJ:maricruz 01/15/2024 TC:5 CPT: 12941
== END | disposition home or self-care (01) ==
LOC: LABSPEC 11:05
PROVIDERS: PCP Family Medicine; Referring Provider Obstetrics & Gynecology; Visit Provider Obstetrics & Gynecology
DX: N93.9 Abnormal uterine and vaginal bleeding, unspecified (principal)
CPT/HCPCS: 88305

== ENCOUNTER 2024-03-04 05:25 | Day surgery (SDC) | payer MEDICAID, SELFPAY ==
--- NOTE | 2024-02-20 09:05 | EKG12_ITS ---
Test Reason : PRE-OP Blood Pressure : / mmHG Vent. Rate : 105 BPM Atrial Rate : 105 BPM P-R Int : 164 ms QRS Dur : 068 ms QT Int : 340 ms P-R-T Axes : 048 -02 041 degrees QTc Int : 449 ms Sinus tachycardia Otherwise normal ECG Confirmed by King Ellison ([id number]), editorial assistant MARIE MENDOSA ([id number]) on 02/21/2024 7:58:15 AM Referred By: Brittany Argueta Confirmed By:King Ellison
[2024-02-20 09:44] LABS: Hematocrit 40.4 % (37-47); Hemoglobin 13.1 g/dL (12.0-15.0); Mean Corp Hgb Conc 32.4 g/dL (32-36); Mean Corpuscular Hgb 26.3 pg (27.0-32.0); Mean Platelet Vol. 10.3 fl (6.2-12.0); Platelet Count 227 K/mm3 (150-450); RBC Distribution Width CV 12.2 % (11.6-14.6); RBC Distribution Width SD 36.4 fl (35.1-43.9); Red Blood Count 4.99 M/mm3 (4.2-5.4); White Blood Count 5.4 K/mm3 (4.4-11.0)
[2024-02-20 10:14] LABS: ALB/GLOB Ratio 0.9 RATIO (0.9-2.4); AST(SGOT) 62 U/L (15-37); Alanine Aminotransfer ALT/SGPT 88 U/L (13-56); Albumin, Serum 3.3 g/dL (3.2-5.0); Alkaline Phosphatase 57 U/L (45-117); Anion Gap 6 (5-15); BUN 8 mg/dL (7-18); BUN/Creat Ratio 11.3 RATIO (10-20); Calcium,Total 8.6 mg/dL (8.5-10.1); Chloride 107 mmol/L (98-107); EST Glomerular Filtration Rate 102 mL/min (>60); Est Glom Filt Rate - Afr Amer 123 mL/min (>60); Globulin 3.5 g/dL (2.2-4.2); Glucose 118 mg/dL (74-106); Potassium 4.3 mmol/L (3.5-5.1); Protein, Total 6.8 g/dL (6.4-8.2); Sodium Level 136 mmol/L (136-145)
[2024-03-04] VITALS (11 sets, daily range): BP systolic 108–148; BP diastolic 42–109; PULSE 71–105; RESP 16–18; TEMP 36.3–36.8; O2SAT 95–100; BMI 60.5
[2024-03-04 06:01] LABS: Internal QC Validated? YES +Cl - CLEAR BKGD; Pregnancy, Urine Negative Negative
[2024-03-04] MEDS: Magnesium 1 GM over 15 mins IV (06:25)
[2024-03-04] MEDS: Gabapentin 600 MG Tablet PO (06:25)
[2024-03-04] MEDS: Lactated Ringers 1,000 ML 40 ML IV (06:25)
[2024-03-04] MEDS: Acetaminophen 500 MG Tablet 1000 MG PO (06:26)
[2024-03-04] MEDS: Phenazopyridine 95 MG Tablet 190 MG PO (06:26)
[2024-03-04 06:53] LABS: Bedside Glucose 88 mg/dL (74-106)
--- NOTE | 2024-03-04 07:28 | DCINST_ITS ---
Discharge Instructions Diet Discharge Diet: No restrictions Activity May resume sexual activity in: 6 weeks Weight Bearing Status: Full weight bearing Dressing / Incision Call your doctor if your incision/area has: Continuous Slow Oozing, Sudden Increased Bleeding, Increased Pain/ Swelling, Increased Redness and Foul Smelling Discharge Call your doctor if you observe: Fever of 101 or Higher, Using more than 1 pad per hour, Shortness of breath, Chest pain and Uncontrolled pain Suture Line Care: Avoid Pulling/Pushing and Avoid Pinching/Bending Remove Dressing in: 1 week (if present) Cleanse incision/area with: Soap & Water and Keep Dressing Clean & Dry Follow Up Care Please Follow Up With: Brittany Argueta DO When: Call to make an appointment with your doctor for a postop visit in 2 and 6 weeks Test Results: Test results from this visit will be discussed in further detail at your follow- up appointment, if applicable. Discharge Plan Admission Primary Reason for Your Visit: hysterectomy Attending Provider: Brittany Argueta Primary Care Provider: Wilson Cruz Discharge Orders/Prescriptions Prescriptions: New ibuprofen 800 mg tablet 800 mg PO Q8H PRN (Reason: pain) Qty: 30 0RF ondansetron HCl 4 mg tablet 4 mg PO Q6H PRN (Reason: nausea and vomiting) Qty: 20 0RF oxycodone-acetaminophen [Percocet] 5-325 mg tablet 1 tab PO Q4H PRN (Reason: pain) 7 Days Qty: 30 0RF Rx Instructions: 1-2 tabs q 4 hrs as needed for pain Continued famotidine [Pepcid] 20 mg tablet 20 mg PO BID montelukast 10 mg tablet 10 mg PO DAILY fexofenadine [Shonda Hives] 180 mg tablet 180 mg PO DAILY ibuprofen 600 MG tablet 600 mg PO Q6H PRN PRN (Reason: Pain Or Fever) Qty: 30 0RF hydroxyzine HCl 25 mg tablet 100 mg PO QHS PRN (Reason: itching) Discontinued L norgest/e.estradiol-e.estrad 0.15 mg-30 mcg (84)/10 mcg (7) tablets,dose pack,3 month See Rx Instructions PO .COMPLEX Rx Instructions: take 1 tablet daily following the order on blister card(s) PO Other Ambulatory Orders: 12 Lead EKG (Routine) Timeframe: 20240220 Location: None Selected Ordered By: Dr. Brittany Argueta Referrals / Follow Up: Wilson Cruz MD [Primary Care Provider] - Disposition Disposition (needs filled in before D/C Order can be placed): Home, Self Care
--- NOTE | 2024-03-04 07:28 | PCM.HP.BLA ---
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 Is patient in pain?: No Allergies Bleach (Sodium Hypochlorite) Adverse Reaction (Verified 02/18/24 11:16) Hives Medications ibuprofen 600 mg tablet 600 mg PO Q6H PRN PRN Pain Or Fever #30 tabs 11/20/19 [Rx Confirmed 02/18/24] L norgest/E estradiol-E estrad 0.15 mg-30 mcg (84)/10 mcg(7) tabs,3mos See Rx Instructions PO .COMPLEX 12/03/23 [History Confirmed 02/18/24] famotidine 20 mg tablet (Pepcid) 20 mg PO BID 12/03/23 [History Confirmed 02/18/24] fexofenadine 180 mg tablet (Shonda Hives) 180 mg PO DAILY 12/03/23 [History Confirmed 02/18/24] montelukast 10 mg tablet 10 mg PO DAILY 12/03/23 [History Confirmed 02/18/24] Post menopausal: No Patient : No : No [facility] Medical History Environmental allergies Gastric reflux Non-smoker Wears glasses Surgical History History of cholecystectomy History of foot surgery S/P tubal ligation Family History Other Breast cancer Diabetes Social History adopted: No household members: significant other and children housing: house number of children: 2 current occupational status: employed current occupation: [employer] history of recent travel: No sexually active: Yes Smoking Status: Never smoker alcohol intake: never substance use type: does not use well-balanced diet: daily or most days caffeine: Yes Type: carbonated beverages Number of servings: 1 eating out: rarely or never what type of physical activity do you participate in: walking and weight training frequency: 3-4 times per week seatbelt use: always do you feel safe at home: Yes additional social history: BRITTANY - Christian ROSA TRH Details: DENISSE MCKENZIE is a 33 year old who presents for abnormal uterine bleeding. Previously seen at [facility] and with PCOS and placed on continuous cycling of Seasonique. Review of 2021 US with patient revealed possible Adenomyosis and small fibroid. The OCP was working for the first year but over the last 3-4 months she has been having regular heavy menses while on the OCPs. She has been passing large clots and would change 3 tampons each hour. She is also experiencing sharp right sided ovarian pain. She rates this a 9/10 and it comes and goes throughout the day but she does have this pain on a daily basis. It started approximately a month ago. EMB was performed and noted to be normal. ultrasound showed the following: FINDINGS: Limited by bowel gas. Normal uterine size measuring 8.3 x 4.9 x 5.0 cm in maximal craniocaudal dimension. There are no myometrial masses. Normal endometrial thickness measuring 5 mm. There are no endometrial masses, and there is no fluid in the endometrial cavity. Endometrial echoes are hyperechoic and well-defined. Nabothian cyst of the uterine cervix. Normal right ovary, measuring 4.4 x 4.2 x 3.6 cm. There is a 3.5 cm simple cyst. Normal blood flow. Left ovary is not visualized because of bowel gas. There is no free fluid in the pelvis. Polycystic ovary disease: No. US/Transvaginal Non- IMPRESSION: Left ovary is not seen. Right ovary has a 3.5 cm cyst. No other definite acute or significant abnormality seen. History Elective abortions Hx Para 1 Spontaneous abortions Hx # Term Pregnancies Ectopic pregnancies Hx # Pregnancies Multiple births # of living children Past Pregnancies Del. Date Name GA/Weeks Outcome Route Bth Weight Gen Labor Lgth Anesthesia Del Locatn Provider FOB 01/05/13 [place] 39 live - full term [place] 10/06/19 [place] 37 [place] ROS Const ROS Unobtainable: All systems reviewed & are unremarkable except as noted in H Resp Resp: Reports system reviewed and no additional complaints, except as documented; Denies cough GI GI: Reports as per HPI Psych Psych: Reports system reviewed and no additional complaints, except as documented Exam Const General: cooperative, healthy appearing, comfortable and no acute distress Resp Effort & Inspection: normal respiratory effort Skin General: no rashes or lesions noted Psych Appearance: grossly normal Speech and Movement: speech and movement normal Coding Level of Care Code Off vis,est,level 4 Diagnoses Polycystic bilateral ovaries E28.2 Abnormal uterine bleeding N93.9 Fibroid, uterine D25.9 Adenomyosis of uterus N80.03 Morbid obesity E66.01 Assessment and Plan Assessment and Plan (1) Polycystic bilateral ovaries: Status: Acute (2) Abnormal uterine bleeding: Status: Acute (3) Fibroid, uterine: Status: Acute (4) Adenomyosis of uterus: Status: Acute Comment: on previous US (5) Morbid obesity: Status: Acute Plan After discussing the patient's diagnosis and treatment plan options, patient wishes to proceed with surgical management. I have discussed with the patient the risks, benefits, and alternatives of the procedure which include but are not limited to risks of anesthesia, bleeding, infection, possible damage to bowel, bladder, or surrounding vasculature which could lead to additional surgery to evaluate any complications. Patient agrees to procedure and wishes to proceed. ACOG/uptodate references given for additional information regarding procedure. plan is for total robotic hysterectcomy, right oophorectomy, and cystoscopy. She is already status post bilateral salpingectomy.
--- NOTE | 2024-03-04 07:30 | HYST_PTH ---
PATIENT: DENISSE MCKENZIE LOC: [facility] [place] U#:[id number] AGE/SX: 33/F ROOM: RE03/04/[address]: Dr. Brittany Argueta DO : 1990 BED: DIS: 03/04/2024 SPEC #: [id number] RECD: 03/04/24 11:01 STATUS: RO REBryant #: [id number] LARRY: 03/04/24 07:[address]: Brittany Argueta DEPT: SURGICAL PATHOLOGY RECD BY: Ashleigh Conroy ENTERED: 03/04/24 11:24 SP TYPE: HYSTERECT OTHR DR: Dr. Wilson Cruz MD Tissues: Uterus, NOS Procedures: Surgery Specimen Level V HEADER OPERATION: ERAS, Lap robotic hysterectomy, right oophorectomy PRE-OP DIAGNOSIS: Polycystic bilateral ovaries, abnormal uterine bleeding, fibroid, uterine, adenomyosis of uterus, morbid obesity TISSUE SUBMITTED: Uterus, cervix, right ovary MICROSCOPIC DIAGNOSIS Uterus, cervix, right ovary, hysterectomy and right oopherectomy: Cervix - Chronic cystic cervicitis Endometrium - Proliferative endometrium Myometrium - Intramural and subserosal leiomyomas (largest measuring 1.5cm in greatest dimension). Right ovary- Endometriotic cyst (3.5cm in greatest dimension) - Physiologic follicular cysst. BELINDA/ 03/05/2024 MICROSCOPIC DESCRIPTION Slides are reviewed. GROSS DESCRIPTION Received in fixative is one container labeled with the patient's name and designated uterus, cervix and right ovary. The specimen consists of a hysterectomy specimen consisting of uterus, cervix and attached right ovary. The uterus with cervix weighs 123 gm and measures 10.5 x 6.5 x 5.5 cm. The serosal surface is amado glistening. A few subserosal nodule is noted. The ectocervical mucosa is unremarkable. The external os is oval in contour and covered with hemorrhagic mucoid material. The endocervical canal measures 2.6 cm in length and the endocervical mucosa is amado glistening and unremarkable. The triangular endometrial cavity measures 4.5 cm in length and 3.5 cm in width. The endometrium is amado glistening without any mass lesion and measures 0.1 cm in greatest dimension. Section of the uterine wall reveals several intramural and subserosal nodular masses. The largest mass is subserosal in location and measures 1.5cm in greatest dimension. Sections of these mass(es) reveal amado whorled cut surfaces without areas of hemorrhage, necrosis or cystic degeneration. The uninvolved uterine wall measures up to 2.5cm in thickness. Soft to cystic right ovary weighs 21gm and measures 4.0 x 3.0 x 3.5cm. External surface is smooth and inked black. Sections reveal a large cyst filled with hemorrhagic fluid measuring 3.5cm in greatest dimension. A few smaller cysts filled with hemorrhagic material are also noted. Trade Mark Examiner sections are submitted in 11 cassettes as follows: 1 - anterior cervix, 2 - posterior cervix, 3 & 4 - anterior uterine wall, 5 & 6 - posterior uterine wall, 7- Largest serosal nodular mass, 8- smaller intramural and subserosal nodular masses, 9-11- right ovary SJ:mr 03/04/2024, TC:5, CPT: 30158
[2024-03-04] MEDS: Cefazolin 3 GM in 0.9% Normal Saline (100mL Bag) 100 ML IV (07:59)
[2024-03-04] MEDS: Bupivacaine 0.25% 30 ML Vial (08:29)
--- NOTE | 2024-03-04 09:57 | OP.PCM_ITS ---
Problems Associated Problem List Diagnoses (1) Morbid obesity: (2) Polycystic bilateral ovaries: (3) Abnormal uterine bleeding: (4) Fibroid, uterine: (5) Adenomyosis of uterus: Report of Operation Date of Procedure: 03/04/24 Pre-Operative Diagnosis: Abnormal uterine bleeding, fibroid uterus, persistent right ovarian cyst, morbid obesity, suspect adenomysosis Post-Operative Diagnosis: Abnormal uterine bleeding, fibroid uterus, persistent right ovarian cyst, morbid obesity, suspect adenomysosis, surgical findings of mild endometriosis Surgery/Procedure Performed:: total robotic hysterectomy, right oophorectomy, cystoscopy, lysis of ahesions Description of Surgical Findings:: Findings: 9 cm size uterus, normal appearing ovaries and tubes. On exploration of the abdominal cavity the uterus, adnexa, bowel, and liver were found to be normal. Cystoscopy showed no evidence of leaking at approximately 250 cc of normal saline, positive ureteral orifices and jet flow are seen and no suture material was appreciated in the bladder. Specimens removed: Uterus and cervix, right ovary Reason for surgery: This is a 33-year-old G2, P2 who presented to my office with history of heavy menses despite trying ocps. Ultrasound showed the presence of adenomyosis and a fibroid uterus. The planned procedure is for a robotic hysterectomy the risks benefits and alternatives were discussed with the patient the patient had a clear understanding of the procedure and a consent form was signed. Procedure: The patient was placed in the dorsal low lithotomy position and prepped and draped in the normal sterile fashion both abdominally and in the perineum. Her legs were placed in stirrups a Koch catheter was inserted into the urethra without difficulty. A weighted speculum was placed in the vagina and a single- tooth tenaculum was used to grasp the anterior lip of the cervix. An advincula uterine manipulator was inserted through the cervix without complication. It was then tied into place at the 2 and 10:00 locations on the cervix. Gloves were changed and attention was turned towards the abdomen. In the umbilicus and after Marcaine injection, a 8 mm incision was made. A 5 mm trocar was inserted through the laparoscope, then inserted into the abdomen under direct visualization using the laparoscope. Good abdominal placement was noted and no complications were appreciated. An air seal device was utilized to create pneumoperitoneum. At 12 cm lateral to the midline on the left and right sides 8 mm accessory ports were placed. Next a left upper quadrant 8 mm catering assistant port site was placed. The 5 mm trocar was then exchanged for an 8mm robotic trocar The patient was placed in steep Trendelenburg position. The robot was docked. The hysterectomy was initiated first by taking down the round ligament on each side using the vessel sealer device. On the right side of the uterus, The peritoneum between the round ligament and the IP ligament was opened using electrocautery and extended the length of the IP ligament. The IP ligament was then taken down using the vessel sealer device. These areas were freed without complication the broad ligament was then and taken down using the vessel sealer device. Small adhesions were taken down from the posterior bladder to the mid level of the uterus. Next the bladder flap was taken down without complication. This was done using monopolar cautery to the level of the cervical vaginal junction. After the bladder flap was created, uterine vessels were then isolated and cauterized using the vessel sealer device and EndoShears. At this point the uterine vessels were taken down further starting from the ascending branch, dissecting along the edges of the cervix to the level of the cervical vaginal junction with hemostasis appreciated. The cervical vaginal junction was then using monopolar cautery in a circumferential pattern across the superior aspect of the cervix. The specimen was delivered through the vagina and sent to pathology. The remaining vaginal cuff was then closed using a V lock suture. This was performed in a running technique. There were some areas of slight oozing. For this, Hemoblast was applied. Excellent hemostasis was obtained and good closure was noted. Irrigation was then performed. All operative sites were noted to be hemostatic. A cystoscopy was performed with a 70 degree cystoscope through the urethra into the bladder without complication. The bladder was instilled with approximately 250 cc of normal saline. Intraoperative images were made. Ureteral orifices and jets were identified. No suture material was appreciated in the bladder. The bladder was then drained and cystoscope was removed. The abdominal cavity was again examined using the laparoscope after the robot was undocked. All operative sites were noted to be hemostatic. The trochars were removed under direct visualization without complication and pneumoperitoneum was reduced. At this point the skin was then closed using 4-0 Monocryl subcuticular stitch and sealed with surgical glue. The patient tolerated the procedure well sponge lap and needle counts were correct x2 the patient was taken to the recovery room in stable condition. Surgeon: Brittany Argueta foreign service teacher: Spike Monique Type of Anesthesia: General Anesthesiologist: Marin Caruso Specimen's removed: uterus, cervix, right ovary Complications none Admit VTE Documentation VTE Present on Admission: Yes VTE Mechan Device Prophylaxis: SCD's VTE Pharm Prophylaxis ordered?: No Multi Select Codes Urinary/Genital Urinary/Genital CPT Codes: 56112 Cystoscopy and 78683 TLH+BS/O <250gr uterus
[2024-03-04] MEDS: Lactated Ringers @ 70 MLS/HR 70 ML IV (10:38)
[2024-03-04] MEDS: Oxycodone/Apap 5/325 Tablet PO (12:49)
== END 2024-03-04 13:40 | disposition home or self-care (01) ==
LOC: SDC 05:26 → AC 05:26
PROVIDERS: Anesthesiology; Obstetrics & Gynecology; PCP Family Medicine; Referring Provider Obstetrics & Gynecology; Visit Provider Obstetrics & Gynecology
PROC: 0UT94ZZ Resection of Uterus, Percutaneous Endoscopic Approach (ICD-10-PCS; CPT 58571; principal; 2024-03-04 07:10)
DX: N80.101 Endometriosis of right ovary, unspecified depth (principal); E66.01 Morbid (severe) obesity due to excess calories; Z68.44 Body mass index [BMI] 60.0-69.9, adult; E28.2 Polycystic ovarian syndrome; N80.03 Adenomyosis of the uterus; D25.9 Leiomyoma of uterus, unspecified; N72 Inflammatory disease of cervix uteri; K21.9 Gastro-esophageal reflux disease without esophagitis; Z79.899 Other long term (current) drug therapy; Z98.51 Tubal ligation status
CPT/HCPCS: 58571; 00840; 36415; 80053; 81025; 82962; 83735; 85027; 86850; 86900; 86901; 88307; 93005; J7120; J2405; J3475